=== PATIENT | female | born 1945 | race Caucasian/White ===

== ENCOUNTER → 2023-09-06 12:11 | Outpatient (REF) | payer OTHER, SELFPAY | LOC: PET 12:11 | PROVIDERS: ATTENDING PHYSICIAN Radiology Radiation Oncology | DX: R91.8 Other nonspecific abnormal finding of lung field (principal) | CPT/HCPCS: 78815; A9552 ==

== ENCOUNTER → 2023-09-10 11:15 | Outpatient (REF) | payer OTHER, SELFPAY | LOC: HWRAD 11:15 | PROVIDERS: ATTENDING PHYSICIAN Nurse Practitioner Family; FAMILY PHYSICIAN Family Medicine | DX: R91.8 Other nonspecific abnormal finding of lung field (principal) | CPT/HCPCS: 71250 ==

== ENCOUNTER 2023-09-19 06:23 | Day surgery (SDC) | payer OTHER, SELFPAY ==
[2023-09-10 16:14] LABS: INR 1.13; PT 14.3 Sec (11.4-14.6)
[2023-09-10 16:15] LABS: APTT 38.6 Sec (23.4-35.0)
[2023-09-19 07:06] VITALS: BMI 14.6
[2023-09-19 07:14] VITALS: BP 114/67; BMI 14.6
[2023-09-19 09:48] VITALS: BP 114/67; BP 120/71
[2023-09-19 10:00] VITALS: BP 124/81
[2023-09-19 10:15] VITALS: BP 118/94
[2023-09-19] MEDS: DUONEB 3 ML INH (10:51)
[2023-09-19 11:05] VITALS: BP 112/69
[2023-09-19 11:33] VITALS: BP 127/82
== END 2023-09-19 12:07 | disposition home or self-care (01) ==
LOC: GI 06:23
PROVIDERS: ATTENDING PHYSICIAN Internal Medicine Critical Care Medicine
DX: J44.9 Chronic obstructive pulmonary disease, unspecified (principal); D38.1 Neoplasm of uncertain behavior of trachea, bronchus and lung; R05.3 Chronic cough; R91.8 Other nonspecific abnormal finding of lung field
CPT/HCPCS: 31629; 31627; 31623; 31628; 31624; 31654; 88172; 88173; 88305; 36415; 71045; 76000; 85610; 85730; 87015; 87070; 87102; 87116; 87205; 88112; 88177; 88333; 94640; C1887

== ENCOUNTER → 2023-12-21 10:14 | Outpatient (REF) | payer OTHER, SELFPAY | LOC: RAD 10:14 | PROVIDERS: ATTENDING PHYSICIAN Student in an Organized Health Care Education/Training Program; FAMILY PHYSICIAN Family Medicine | DX: Z13.820 Encounter for screening for osteoporosis (principal) | CPT/HCPCS: 77080 ==

== ENCOUNTER → 2024-01-17 09:02 | Outpatient (REF) | payer OTHER, SELFPAY | LOC: RAD 09:02 | PROVIDERS: ATTENDING PHYSICIAN Internal Medicine Critical Care Medicine; FAMILY PHYSICIAN Family Medicine | DX: R91.8 Other nonspecific abnormal finding of lung field (principal) | CPT/HCPCS: 71250 ==

== ENCOUNTER → 2024-04-07 10:43 | Outpatient (REF) | payer OTHER, SELFPAY | LOC: RAD 10:43 | PROVIDERS: ATTENDING PHYSICIAN Internal Medicine Critical Care Medicine; FAMILY PHYSICIAN Family Medicine | DX: R91.8 Other nonspecific abnormal finding of lung field (principal) | CPT/HCPCS: 71250 ==